=== PATIENT | female | born 1990 | race Caucasian/White ===

== ENCOUNTER 2017-07-21 19:25 | Emergency (ER) | payer SELFPAY ==
[2017-07-21 20:49] VITALS: RESP 17
--- NOTE | 2017-07-21 21:30 | ED PDOC ---
HPI: Abdomen Time Seen by Provider: 07/21/17 21:20 Chief Complaint (Nursing): Abdominal Pain Chief Complaint (Provider): ; abdominal pain History Per: Patient History/Exam Limitations: no limitations Onset/Duration Of Symptoms: Days (2) Location Of Pain/Discomfort: LLQ, Periumbilical Quality Of Discomfort: Cramping Additional History Per: Patient Additional Complaint(s): 26 y/o female, approx 8 weeks gestation presents with pelvic cramping x 2 days. Denies fever, nausea/vomiting, cough, congestion, chest pain, shortness of breath, palpitations, vaginal bleeding/discharge, urinary symptoms. Patient has not yet received care. Abnormal Vaginal Bleeding: No Last Menstral Period: 05/07/17 : 1 Para: 0 Miscarriage: 0 Past Medical History Reviewed: Historical Data, Nursing Documentation, Vital Signs Vital Signs: Last Vital Signs Temp 97.5 F L 07/21/17 20:46 Pulse 93 H 07/21/17 20:46 Resp 17 07/21/17 20:46 BP 134/71 07/21/17 20:46 Pulse Ox 100 07/21/17 22:13 - Medical History PMH: No Chronic Diseases - Surgical History Surgical History: Appendectomy - Family History Family History: States: No Known Family Hx - Living Arrangements Living Arrangements: With Family - Immunization History Hx Tetanus Toxoid Vaccination: No Hx Influenza Vaccination: No Hx Pneumococcal Vaccination: No - Allergies Allergies/Adverse Reactions: Allergies Allergy/AdvReac Type Severity Reaction Status Date / Time No Known Allergies Allergy Verified 07/21/17 20:44 Review of Systems ROS Statement: Except As Marked, All Systems Reviewed And Found Negative Genitourinary Female: Positive for: Pelvic Pain Physical Exam - Reviewed Nursing Documentation Reviewed: Yes Vital Signs Reviewed: Yes - Physical Exam Appears: Positive for: Well, Non-toxic, No Acute Distress Head Exam: Positive for: ATRAUMATIC, NORMAL INSPECTION, NORMOCEPHALIC Skin: Positive for: Normal Color Eye Exam: Positive for: Normal appearance ENT: Positive for: Normal ENT Inspection Cardiovascular/Chest: Positive for: Regular Rate, Rhythm Respiratory: Positive for: Normal Breath Sounds Gastrointestinal/Abdominal: Positive for: Bowel Sounds, Soft, Tenderness (llq, suprapubic) Back: Positive for: Normal Inspection Extremity: Positive for: Normal ROM Neurologic/Psych: Positive for: Alert, Oriented - Laboratory Results Result Diagrams: 07/21/17 22:18 07/21/17 22:18 Urine POC: Positive Urine dip results: Negative for: Leukocyte Esterase, Blood, Nitrate, Ketones - ECG O2 Sat by Pulse Oximetry: 100 - Progress ED Course And Treament: labs, urine, OB t/v u/s EXAM: US , Transvaginal CLINICAL HISTORY: 26 years old, female; Pain; Other: Cramps pelvic pain; Gestational age or lmp: 05/27/17; ; Additional info: Approx 7 wks gestation, pelvic pain TECHNIQUE: Real-time transvaginal obstetrical ultrasound of the maternal pelvis and a first trimester with image documentation. Transvaginal imaging was used for better evaluation of the fetus and adnexa. COMPARISON: No relevant prior studies available. FINDINGS: Gestation: There is a single living intrauterine of sonographic gestational age 6 weeks 0 days, MARK March 16, 2018. Embryonic heart rate 180 per minute. Placenta/amniotic fluid: No visible subchorionic hemorrhage. Uterus/cervix: The cervix is 4.4 cm in length. The internal os is closed. The uterus measures 6.6 x 4.1 x 4.4 cm and is anteverted. No myometrial mass. Ovaries: There is a 1.6 cm cyst of the left ovary. Normal Doppler flow of the ovaries. No mass. Free fluid: No free fluid. IMPRESSION: 1. There is a single living intrauterine of sonographic gestational age 6 weeks 0 days, MARK March 16, 2018. 2. No visible subchorionic hemorrhage. 3. There is a 1.6 cm simple appearing cyst of the left ovary. Patient educated on findings, discharged with instructions to follow up [employer] in 2-3 days. Return precautions given. Disposition - Clinical Impression Clinical Impression: Abdominal pain during , Ovarian cyst - Patient ED Disposition Is Patient to be Admitted: No Counseled Patient/Family Regarding: Studies Performed, Diagnosis, Need For Followup - Disposition [facility]errals: [facility]Outside] Disposition: Routine/Home Disposition Time: 23:59 Condition: STABLE Instructions: Abdominal Pain in (ED), Ovarian Cyst (ED) Forms: [employer] ([place])
[2017-07-21 22:21] LABS: BASO % 0.3 % (0.0-2.0); EOS # 0.5 K/uL (0.0-0.7); EOS % 4.7 % (0.0-4.0); HEMATOCRIT 35.7 % (34.0-47.0); LYMPH # 3.3 K/uL (1.0-4.3); LYMPH % 32.9 % (20.0-40.0); MEAN CELL VOLUME 69.9 fl (81.0-99.0); MEAN CORPUSCULAR HEMOGLOBIN 21.7 pg (27.0-31.0); MEAN CORPUSCULAR HGB CONC 31.1 g/dL (33.0-37.0); MONO # 0.9 K/uL (0.0-0.8); MONO % 9.4 % (0.0-10.0); NEUT # 5.3 K/uL (1.8-7.0); NEUT % 52.7 % (50.0-75.0); RED CELL DISTRIBUTION WIDTH 14.4 % (11.5-14.5)
[2017-07-21 22:32] LABS: ALB/GLOB RATIO 1.2 (1.0-2.1); ALKALINE PHOSPHATASE 46 U/L (38-126); ALT/SGPT 38 U/L (9-52); AST/SGOT 21 U/L (14-36); BILIRUBIN,TOTAL 0.4 mg/dl (0.2-1.3); BLOOD UREA NITROGEN 9 mg/dl (7-17); CALCIUM 8.7 mg/dL (8.4-10.2); CARBON DIOXIDE 24 mmol/L (22-30); CHLORIDE 105 mmol/L (98-107); GFR AFRICAN-AMERICAN > 60; GLUCOSE,RANDOM 90 mg/dL (65-105); POTASSIUM 3.5 MMOL/L (3.6-5.0); SODIUM 137 mmol/l (132-148); TOTAL PROTEIN 6.7 G/DL (6.3-8.2)
[2017-07-22 01:31] VITALS: BP 129/75; PULSE 85; TEMP 98; O2SAT 99
--- NOTE | 2017-07-22 09:21 | US ---
PROCEDURE: OB Pelvic Ultrasound HISTORY: approx 7 wks gestation, pelvic pain. Beta HCG 07928. LMP 05/27/2017. COMPARISON: None available. FINDINGS: UTERUS: Gestational sac: Single intrauterine gestation. Measures 1.7 centimeter compatible with estimated gestational age of 6 weeks. [place]-rump length: 0.3 centimeter compatible with estimated gestational age of 6 weeks. Heart rate: 108 bpm. age (Ultrasound estimated): 6 weeks, 0 days [place]-gestational hemorrhage: None. Date of delivery (Ultrasound estimated) : 03/16/2018. Uterus measures 6.6 x 4.1 x 4.4 cm. Anteverted. Normal in size and appearance. CERVIX: Long and closed. No cervical abnormality seen. RIGHT OVARY: Measures 2.4 x 1.4 x 2.0 cm. No mass lesion. Normal flow. LEFT OVARY: Measures 3.6 x 2.3 x 2.8 cm. No solid mass. Normal flow. Simple cyst measuring 1.5 x 1.5 x 1.6 centimeter. FREE FLUID: None. OTHER FINDINGS: None. IMPRESSION: Single intrauterine gestation with average ultrasound age 6 weeks, 0 days. heart rate 108 beats per minute.
== END 2017-07-22 00:04 | disposition home or self-care (01) ==
LOC: H.ER 19:25
DX: O26.891 Other specified pregnancy related conditions, first trimester (principal); Z3A.01 Less than 8 weeks gestation of pregnancy; N83.202 Unspecified ovarian cyst, left side